=== PATIENT | female | born 1960 | race Hispanic/Latino ===

== ENCOUNTER 2022-04-04 05:25 | Emergency (ER) | payer OTHER ==
[~2022-04-04] VITALS: Ht 154.9 cm; Wt 120.2 kg
[2022-04-04] MEDS ORDERED: ONDANSETRON 4MG INJ ONE (05:35)
[2022-04-04] MEDS ORDERED: MORPHINE 4 MG SYG ONE (05:36)
[2022-04-04 05:53] LABS: BASOPHILS % (AUTO) 0.3 % (0.0-5.0); EOSINOPHILS % (AUTO) 1.8 % (0.0-8.0); HEMATOCRIT 46.5 % (36-48); LYMPHOCYTES % (AUTO) 14.7 % (21.0-51.0); MEAN CORPUSCULAR HEMOGLOBIN 30.1 pg (27.0-33.0); MEAN CORPUSCULAR VOLUME 93.9 fL (79-99); MONOCYTES % (AUTO) 8.6 % (3.0-13.0); NEUTROPHILS % (AUTO) 74.3 % (40.0-77.0); PLATELET COUNT (AUTO) 218 K/uL (130-400); RED BLOOD CELL COUNT(AUTO) 4.95 MIL/uL (4.00-5.50); WHITE BLOOD COUNT (AUTO) 12.5 K/uL (4.8-10.8)
[2022-04-04] MEDS ORDERED: 0.9% NACL 500ML IV.SOLN 500 ML IV ONE (06:00)
[2022-04-04 06:19] LABS: APPEARANCE,URINE Cloudy (CLEAR); BILIRUBIN,URINE Negative (NEGATIVE); COLOR,URINE Yellow (YELLOW); GLUCOSE, URINE (UA) >=1000 mg/dL (NEGATIVE); KETONES,URINE Negative (NEGATIVE); LEUKOCYTE ESTERASE ,URINE Negative (NEGATIVE); NITRATE,URINE Negative (NEGATIVE); OCCULT BLOOD,URINE Trace (NEGATIVE); PROTEIN,URINE Negative (NEGATIVE); UROBILINOGEN,URINE 0.2 mg/dL (0.2-1.0)
[2022-04-04 06:52] LABS: ALBUMIN 4.1 g/dL (3.5-5.0); BILIRUBIN,TOTAL 0.6 mg/dL (0.2-1.0); CREATININE 0.8 mg/dL (0.5-1.5); TOTAL PROTEIN, SERUM 8.2 g/dL (6.0-8.3)
[2022-04-04 06:54] LABS: RBC,URINE 0-1 /HPF (0-1)
[2022-04-04 06:55] LABS: BACTERIA,URINE None Seen /HPF (None Seen); SQUAMOUS EPITHELIAL CELL,UR Moderate /HPF (0-2)
[2022-04-04] MEDS ORDERED: 0.9% NACL 500ML IV.SOLN 500 ML IV SCH (07:00)
[2022-04-04 07:29] VITALS: BP 131/58
[2022-04-04] MEDS ORDERED: ONDA4TAB10 PO (07:39)
[2022-04-04] MEDS ORDERED: FAMO-136 PO (07:39)
== END 2022-04-04 08:05 | disposition home or self-care (01) ==
LOC: EDH 05:25
DX: A05.9 Bacterial foodborne intoxication, unspecified (principal); E86.0 Dehydration; R10.13 Epigastric pain; R19.7 Diarrhea, unspecified; I10 Essential (primary) hypertension; E11.9 Type 2 diabetes mellitus without complications; E78.00 Pure hypercholesterolemia, unspecified
CPT/HCPCS: 36415; 80053; 81001; 82270; 82550; 83690; 84484; 85025; 93005; 96374; 96375; 99284; J2270; J2405

== ENCOUNTER → 2023-07-06 | Outpatient (CLI) | payer OTHER ==
[~2023-07-06] MED LIST: FAMO-136 PO; ONDA4TAB10 PO
== END | disposition home or self-care (01) ==
LOC: RAH 13:56
PROVIDERS: ATTEND Orthopaedic Surgery
DX: S83.191A Other subluxation of right knee, initial encounter (principal); M17.11 Unilateral primary osteoarthritis, right knee; M77.31 Calcaneal spur, right foot; M85.88 Other specified disorders of bone density and structure, other site; X58.XXXA Exposure to other specified factors, initial encounter; Y93.89 Activity, other specified; Y92.89 Other specified places as the place of occurrence of the external cause; Y99.8 Other external cause status
CPT/HCPCS: 73700

== ENCOUNTER 2023-07-27 05:41 | Observation (INO) | payer OTHER ==
[2023-07-22 10:57] LABS: BASOPHILS # (AUTO) 0.07 K/uL (0.00-0.20); BASOPHILS % (AUTO) 0.7 % (0.0-5.0); EOSINOPHILS # (AUTO) 0.18 K/uL (0.00-0.70); EOSINOPHILS % (AUTO) 1.9 % (0.0-8.0); HEMATOCRIT 46.1 % (36-48); IMMATURE GRANULOCYTE ABSOLUTE 0.03 K/uL (0-1); LYMPHOCYTES # (AUTO) 2.9 K/uL (1.0-4.8); LYMPHOCYTES % (AUTO) 30.4 % (21.0-51.0); MEAN CORPUSCULAR HGB CONC 32.3 g/dL (32.0-36.0); MONOCYTES # (AUTO) 0.8 K/uL (0.1-1.0); MONOCYTES % (AUTO) 8.4 % (3.0-13.0); NEUTROPHILS # (AUTO) 5.6 K/uL (1.8-7.7); NEUTROPHILS % (AUTO) 58.3 % (40.0-77.0); PLATELET COUNT (AUTO) 216 K/uL (130-400); RED CELL DISTRIBUTION WIDTH 15.9 % (11.0-15.5); WHITE BLOOD COUNT (AUTO) 9.6 K/uL (4.8-10.8)
[2023-07-22 11:08] LABS: CREATININE 0.8 mg/dL (0.5-1.5); POTASSIUM 4.7 mmol/L (3.5-5.1)
[2023-07-22 11:26] LABS: INR < 0.93 (0.85-1.15); PROTHROMBIN TIME 10.4 SEC (9.6-11.6)
[2023-07-22 11:27] LABS: PARTIAL THROMBOPLASTIN TIME 27.8 SEC (26.3-35.5)
[2023-07-22 11:47] VITALS: BP 143/77; PULSE 77; RESP 20
[~2023-07-27] VITALS: Ht 162.6 cm; Wt 117.8 kg
[2023-07-27] VITALS (28 sets, daily range): BP systolic 140–158; BP diastolic 64–85; PULSE 68–87; RESP 14–20; O2SAT 93
[2023-07-27] MEDS ORDERED: CEFAZOLIN SODIUM 2 GM VIAL ONE (06:29)
[2023-07-27] MEDS ORDERED: 0.9%NACL 1000ML 1,000 ML IV ONE (06:29)
[2023-07-27] MEDS ORDERED: ATOR20TA65 PO (06:44)
[2023-07-27] MEDS ORDERED: LISI40TA9 PO (06:44)
[2023-07-27] MEDS ORDERED: CHOL500051 PO (06:44)
[2023-07-27] MEDS ORDERED: CANA300T PO (06:44)
[2023-07-27] MEDS ORDERED: METO-408 PO (06:44)
[2023-07-27] MEDS ORDERED: SUCCINYLCHOLINE 200MG/10ML SYR ONE (06:52)
[2023-07-27] MEDS ORDERED: LIDOCAINE PF 100MG/5ML (2%) SYRINGE 5ML ONE (06:52)
[2023-07-27] MEDS ORDERED: ONDANSETRON 4MG INJ ONE (06:52)
[2023-07-27] MEDS ORDERED: ROCURONIUM 10MG/1ML SYR 10 MG/ML ML ONE (06:53)
[2023-07-27] MEDS ORDERED: FENTANYL CITRATE PF 50 MCG/1 ML 2ML VIAL ONE ×2 (06:53→10:20)
[2023-07-27] MEDS ORDERED: PROPOFOL 10 MG/ML 20ML VIAL IV ONE (06:53)
[2023-07-27] MEDS ORDERED: DEXAMETHASONE SOD PHOSPHATE 10MG/ML 1ML VIAL ONE (06:53)
[2023-07-27] MEDS ORDERED: MIDAZOLAM HCL 1 MG/ML 2ML VIAL ONE (06:53)
[2023-07-27] MEDS ORDERED: ROPIVACAINE 0.5% 5MG/ML 30ML IJ ONE (07:00)
[2023-07-27] MEDS ORDERED: LIDOCAINE HCL-MPF 2% 5ML VIAL ONE (07:01)
[2023-07-27] MEDS ORDERED: TRANEXAMIC ACID 1000MG/10ML ONE (07:08)
[2023-07-27] MEDS ORDERED: CEFAZOLIN SODIUM 2 GM VIAL IVPB ONE (07:40)
[2023-07-27] MEDS ORDERED: TRANEXAMIC ACID 1000MG/10ML IV ONE (08:00)
[2023-07-27] MEDS ORDERED: SUGAMMADEX SODIUM 200 MG/2 ML VIAL IV ONE (08:52)
[2023-07-27] MEDS ORDERED: HYDROCODONE/ACETAMINOPHEN 10/325 MG TAB PO PRN (09:30)
[2023-07-27] MEDS ORDERED: POTASSIUM CHLORIDE 10% ELIXIR 20 MEQ/15 ML UDCUP PO PRN (09:30)
[2023-07-27] MEDS ORDERED: POTASSIUM CHLORIDE 20MEQ/100ML 100 ML IV PRN (09:30)
[2023-07-27] MEDS ORDERED: HYDROCODONE/ACETAMINOPHEN 5/325 MG TAB PO PRN (09:30)
[2023-07-27] MEDS ORDERED: KCL 20 MEQ ERTAB PO PRN (09:30)
[2023-07-27] MEDS ORDERED: MORPHINE 4 MG SYG IVP PRN (09:30)
[2023-07-27] MEDS ORDERED: ONDANSETRON 4MG INJ IVP PRN (09:30)
[2023-07-27] MEDS ORDERED: ACETAMINOPHEN 1,000 MG/100 ML VIAL IV ONE (09:57)
[2023-07-27] MEDS: INSULIN HUMULIN R 100 UNIT/ML 3ML SQ SCH ×3 (11:30→20:12)
[2023-07-27] MEDS: IBUPROFEN 800MG + NS 250ML IV SCH ×2 (12:06→20:20)
[2023-07-27] MEDS: 0.9%NACL 1000ML 1,000 ML IV SCH ×2 (12:06→19:30)
[2023-07-27] MEDS: TRAMADOL HCL 50 MG TABLET PO SCH ×3 (12:06→23:45)
[2023-07-27] MEDS: CEFAZOLIN SODIUM 2 GM VIAL IVPB SCH ×2 (16:37→23:40)
[2023-07-27] MEDS: ACETAMINOPHEN 1,000 MG/100 ML VIAL IV SCH ×2 (16:37→22:29)
[2023-07-27] MEDS: ASPIRIN 81 MG EC TAB PO SCH (20:20)
[2023-07-27] MEDS: FAMOTIDINE 20MG TAB PO SCH (20:20)
[2023-07-27] MEDS ORDERED: LISINOPRIL 40 MG TABLET PO SCH (21:00)
[2023-07-28] VITALS: BP 143/68; PULSE 79; RESP 18
[2023-07-28] MEDS: IBUPROFEN 800MG + NS 250ML IV SCH (03:49)
[2023-07-28] MEDS: 0.9%NACL 1000ML 1,000 ML IV SCH (03:51)
[2023-07-28 04:00] VITALS: BP 137/68; PULSE 75; RESP 18
[2023-07-28] MEDS: TRAMADOL HCL 50 MG TABLET PO SCH ×2 (05:10→12:38)
[2023-07-28 05:56] LABS: HEMATOCRIT 39.6 % (36-48); MEAN CORPUSCULAR HEMOGLOBIN 30.9 pg (27.0-33.0); MEAN CORPUSCULAR HGB CONC 32.3 g/dL (32.0-36.0); MEAN CORPUSCULAR VOLUME 95.7 fL (79-99); RED BLOOD CELL COUNT(AUTO) 4.14 MIL/uL (4.00-5.50); RED CELL DISTRIBUTION WIDTH 15.5 % (11.0-15.5); WHITE BLOOD COUNT (AUTO) 15.9 K/uL (4.8-10.8)
[2023-07-28 06:03] LABS: CREATININE 0.8 mg/dL (0.5-1.5); POTASSIUM 4.3 mmol/L (3.5-5.1)
[2023-07-28] MEDS: INSULIN HUMULIN R 100 UNIT/ML 3ML SQ SCH ×2 (06:10→11:30)
[2023-07-28 08:00] VITALS: BP 133/68; PULSE 69; RESP 16
[2023-07-28] MEDS: ASPIRIN 81 MG EC TAB PO SCH (08:26)
[2023-07-28] MEDS: FAMOTIDINE 20MG TAB PO SCH (08:26)
[2023-07-28] MEDS ORDERED: METOPROLOL SUCCINATE 25 MG TAB.SR.24H PO SCH (09:00)
[2023-07-28] MEDS ORDERED: POLYETHYLENE GLYCOL 3350 17 GM POWD.PACK PO SCH (09:00)
[2023-07-28 12:00] VITALS: BP 122/58; PULSE 74; RESP 16
[2023-07-30] MEDS ORDERED: BISACODYL 10 MG SUPP.RECT RC PRN (09:30)
== END 2023-07-28 16:00 | disposition home or self-care (01) ==
LOC: DAH 05:41 → DAHIP 05:42 → 4AH 11:00
PROVIDERS: ADMIT Orthopaedic Surgery; ATTEND Orthopaedic Surgery
DX: M17.11 Unilateral primary osteoarthritis, right knee (principal); E66.01 Morbid (severe) obesity due to excess calories; E11.9 Type 2 diabetes mellitus without complications; I10 Essential (primary) hypertension; E78.00 Pure hypercholesterolemia, unspecified; Z68.41 Body mass index [BMI] 40.0-44.9, adult; Z79.899 Other long term (current) drug therapy
CPT/HCPCS: 80048 ×2; 85025; 85610; 85730; 36415 ×2; 87641; 96376; 96365; 96366 ×2; 96375; 96367; 64447; 27447; 82948 ×7; 97161; 97039 ×2; 85027; 97116 ×2; 97530; A4605; G0378 ×28; C1776 ×3; C1713; J7030 ×2; J3010 ×2; J3490 ×3; J0330; J1100; J2001; J2250; J2704; J2405; J2270; J2795; J1741 ×3; J0690 ×4; A6223; G0168; A4649 ×2; A4930; A6212; A5120; A4215; A4223; A4222; A4221; A4663

== ENCOUNTER → 2024-01-11 | Outpatient (CLI) | payer OTHER ==
[~2024-01-11] MED LIST changes: +ATOR20TA65 PO; +CANA300T PO; +CHOL500051 PO; -FAMO-136 PO; +LISI40TA9 PO; +METO-408 PO; -ONDA4TAB10 PO
== END | disposition home or self-care (01) ==
LOC: RAH 13:18
PROVIDERS: ATTEND Orthopaedic Surgery
DX: M17.12 Unilateral primary osteoarthritis, left knee (principal)
CPT/HCPCS: 73700

== ENCOUNTER 2024-12-08 08:13 | Emergency (ER) | payer OTHER ==
[~2024-12-08] VITALS: Ht 165.1 cm; Wt 118.8 kg
[2024-12-08] MEDS: ORPHENADRINE 60MG/2ML IM ONE (08:36)
--- NOTE | 2024-12-08 09:04 | HMCIMG ---
CT ABDOMEN/PELVIS W/O CONTRAST HISTORY: Pain COMPARISON: None TECHNIQUE: Multiple sequential axial images of the abdomen and pelvis were obtained from the dome of the diaphragm through symphysis pubis. Patient was not given contrast through intravenous route. Oral contrast was not given. FINDINGS: No pleural effusion is seen bilaterally. There is no evidence of parenchymal disease or pulmonary nodule of the visualized lower lungs. Degenerative changes of the thoracolumbar spine are present. The heart is not enlarged. Liver measures 19 cm. Gallbladder is distended. There is periumbilical hernia with fat content. No bowel obstruction is seen. The liver, spleen, adrenal glands and pancreas are unremarkable. There is no evidence of hydronephrosis bilaterally. No evidence of renal stone is seen. There is minimal diverticulosis. Fecal material is seen in the colon. There are normal size retroperitoneal and mesenteric lymph nodes. No ascites is seen. No CT evidence of acute appendicitis is seen. There is mild atherosclerosis. Pelvic sidewalls are symmetric bilaterally. Bladder is poorly distended. IMPRESSION: 1. Periumbilical hernia with fat content. No ascites. CT was performed with one or more following dose reduction techniques: automated exposure control, adjustment of the mA and kv according to patient's size, or use of a iterative reconstruction technique.
[2024-12-08 09:11] LABS: BASOPHILS # (AUTO) 0.07 K/uL (0.00-0.20); BASOPHILS % (AUTO) 0.8 % (0.0-5.0); EOSINOPHILS # (AUTO) 0.12 K/uL (0.00-0.70); EOSINOPHILS % (AUTO) 1.4 % (0.0-8.0); HEMATOCRIT 45.4 % (36-48); IMMATURE GRANULOCYTE ABSOLUTE 0.02 K/uL (0-1); LYMPHOCYTES # (AUTO) 2.3 K/uL (1.0-4.8); LYMPHOCYTES % (AUTO) 25.9 % (21.0-51.0); MEAN CORPUSCULAR HEMOGLOBIN 30.4 pg (27.0-33.0); MEAN CORPUSCULAR VOLUME 92.1 fL (79-99); MONOCYTES # (AUTO) 0.6 K/uL (0.1-1.0); NEUTROPHILS # (AUTO) 5.7 K/uL (1.8-7.7); NEUTROPHILS % (AUTO) 64.7 % (40.0-77.0); PLATELET COUNT (AUTO) 217 K/uL (130-400); RED BLOOD CELL COUNT(AUTO) 4.93 MIL/uL (4.00-5.50); RED CELL DISTRIBUTION WIDTH 15.8 % (11.0-15.5); WHITE BLOOD COUNT (AUTO) 8.9 K/uL (4.8-10.8)
[2024-12-08 09:22] LABS: APPEARANCE,URINE CLEAR (CLEAR); BILIRUBIN,URINE NEGATIVE (NEGATIVE); COLOR,URINE LIGHT-YELLOW (YELLOW); GLUCOSE, URINE (UA) >=1000 mg/dL (NEGATIVE); KETONES,URINE NEGATIVE (NEGATIVE); LEUKOCYTE ESTERASE ,URINE NEGATIVE Leu/uL (NEGATIVE); NITRATE,URINE NEGATIVE (NEGATIVE); OCCULT BLOOD,URINE NEGATIVE (NEGATIVE); PH,URINE 5.5 (5.0-8.0); PROTEIN,URINE NEGATIVE (NEGATIVE); UROBILINOGEN,URINE 0.2 mg/dL (0.2-1.0)
[2024-12-08 09:44] LABS: CREATININE 0.8 mg/dL (0.5-1.0); POTASSIUM 4.6 mmol/L (3.5-5.1)
[2024-12-08] MEDS ORDERED: NAPR-1505 PO (09:45)
[2024-12-08] MEDS ORDERED: CEPH500B PO (09:45)
[2024-12-08] MEDS ORDERED: METH-662 PO (09:45)
--- NOTE | 2024-12-08 09:45 | ERN ---
General Chief Complaint: Back Pain or Injury Stated Complaint: BACK PAIN Time Seen by MD: 08:16 Source: patient, family History of Present Illness Initial Comments Patient is a 64-year-old female coming in to be evaluated for right lower back and right flank pain. She states that the pain began a couple of days ago she does not recall doing anything strain in his but states that the pain began shortly after waking up in the morning. Does not have no fever no chills. And patient states that the pain is exacerbated with movement. Allergies: Coded Allergies: No Known Drug Allergies (Unverified Allergy, Unknown, 04/04/22) Home Meds Reported Medications Canagliflozin (Invokana) 300 Mg Tablet, 300 MG PO DAILY, TAB 07/27/23 Cholecalciferol (Vitamin D3) (Vitamin D3) 125 Mcg Capsule, 125 MCG PO HS, CAP 07/27/23 Lisinopril (Lisinopril) 40 Mg Tablet, 40 MG PO HS, TAB 07/27/23 Metoprolol Succinate (Metoprolol Succinate) 25 Mg Tab.er.24h, 25 MG PO DAILY, TAB 07/27/23 Atorvastatin Calcium (Atorvastatin Calcium) 20 Mg Tablet, 20 MG PO HS, TAB 07/27/23 Past Medical History Past Medical History: Diabetes-Type II, High Cholesterol, Hypertension Past Surgical History: Other Surgical History Other: BILAT KNEE SX ROS Dictation CONSTITUTIONAL: No chills, no fever, no weakness, no diaphoresis, no malaise. HEAD/FACE: No signs of trauma. EENT: No eye pain, no blurred vision, no tearing, no double vision, no ear pain, no ear discharge, no nose pain, no nasal congestion, no throat pain, no throat swelling, no mouth pain. RESPIRATORY: No cough, no orthopnea, no SOB, no stridor, no wheezing. CARDIOVASCULAR: No chest pain, no edema, no palpitations, no syncope. GASTROINTESTINAL/ABDOMINAL: abdominal pain, no constipation, no diarrhea, no nausea, no vomiting. GENITOURINARY: No abnormal discharge, no dysuria, no frequent urination, no hematuria. No complaints of pain in the genitals. MUSCULOSKELETAL: back pain, no gout, no joint pain, no joint swelling, no muscle pain, no muscle stiffness, no neck pain. INTEGUMENTARY: No change in color, no change in hair/nails, no dryness, no lesion, no lumps, no rash. NEUROLOGICAL/PSYCH: No anxiety, not depressed, no emotional problem, no headache, no numbness, no pre-existing deficit, no history of seizures, no tremors, no weakness. HEMATOLOGIC/LYMPHATIC: Not anemic, no history of blood clots, no apparent bleeding, no bruising, glands not swollen. All Systems Negative, Except as Noted. Physical Exam Physical Exam Dictation VITAL SIGNS: Reviewed. GENERAL APPEARANCE: Alert, oriented x3, no acute distress, obese. HEAD AND FACE: Non-traumatic. EYES: PERRL, pink conjunctivas, eyelid no trauma, anterior chamber clear. EARS: Pinnas intact and no signs of trauma or erythema. Ear canals clear and no discharge. TMs no erythema. NOSE: No discharge, no bleeding. OROPHARYNX: Mouth normal, teeth no caries, tongue pink. Pharynx clear, no erythema. Tonsils no exudates, no abscesses noted. Mucous membrane moist. NECK: Supple, non-tender, no thyromegaly, no masses, no JVD, no bruits. BREAST: Deferred. CHEST: No tenderness, no crepitus, no paradoxical movement, no retractions. LUNGS: Clear, well-ventilated, symmetric, no rales, no wheezing, no rhonchi, no stridor, good breath sounds bilaterally. HEART: Regular rate, regular rhythm, no murmur, no gallops. VASCULAR: No peripheral edema. ABDOMEN: Soft, positive bowel sounds, nondistended, no guarding, right lower quadrant tenderness on palpation, no rebound, no masses no hepatomegaly, no splenomegaly, no Roque's sign, no hernias. RECTAL: Deferred. GENITAL: Deferred. NEUROLOGICAL: Normal speech, gross motor function intact, gross sensory functi on intact. MUSCULOSKELETAL: Neck nontender, full range of motion, right lower back grinder, full range of motion. EXTREMITIES: Nontender, full range of motion. SKIN: Color pink, dry, no turgor, no rash, no lacerations, no abrasions, no contusions. LYMPHATICS: Deferred. Results Laboratory and Microbiology Lab and Micro Result Laboratory Tests Test 12/08/24 08:36 12/08/24 09:04 Urine Color LIGHT-YELLOW (YELLOW) Urine Appearance CLEAR (CLEAR) Urine pH 5.5 (5.0-8.0) Urine Specific [place] 1.020 (1.001-1.031) Urine Protein NEGATIVE mg/dL (NEGATIVE) Urine Glucose (UA) >=1000 mg/dL (NEGATIVE) H Urine Ketones NEGATIVE mg/dL (NEGATIVE) Urine Occult Blood NEGATIVE (NEGATIVE) Urine Nitrate NEGATIVE (NEGATIVE) Urine Bilirubin NEGATIVE mg/dL (NEGATIVE) Urine Urobilinogen 0.2 mg/dL (0.2-1.0) Urine Leukocyte Esterase NEGATIVE Mason/uL White Blood Count 8.9 K/uL (4.8-10.8) Red Blood Count 4.93 MIL/uL (4.00-5.50) Hemoglobin 15.0 g/dL (12.0-16.0) Hematocrit 45.4 % (36-48) Mean Corpuscular Volume 92.1 fL (79-99) Mean Corpuscular Hemoglobin 30.4 pg (27.0-33.0) Mean Corpuscular Hemoglobin Concent 33.0 g/dL (32.0-36.0) Red Cell Distribution Width 15.8 % (11.0-15.5) H Platelet Count 217 K/uL (130-400) Mean Platelet Volume 9.7 fL (7.5-10.5) Immature Granulocyte % (Auto) 0.2 % (0-1) Neutrophils (%) (Auto) 64.7 % (40.0-77.0) Lymphocytes (%) (Auto) 25.9 % (21.0-51.0) Monocytes (%) (Auto) 7.0 % (3.0-13.0) Eosinophils (%) (Auto) 1.4 % (0.0-8.0) Basophils (%) (Auto) 0.8 % (0.0-5.0) Neutrophils # (Auto) 5.7 K/uL (1.8-7.7) Lymphocytes # (Auto) 2.3 K/uL (1.0-4.8) Monocytes # (Auto) 0.6 K/uL (0.1-1.0) Eosinophils # (Auto) 0.12 K/uL (0.00-0.70) Basophils # (Auto) 0.07 K/uL (0.00-0.20) Absolute Immature Granulocyte (auto 0.02 K/uL (0-1) Nucleated Red Blood Cells 0.0 % (0.0-0.19) Labs Reviewed?: Yes EKG/XRAY/US/CT/MRI CT Scan Comment [address] [place] [address] IMAGING REPORT Signed PATIENT: PAUL TUCKER MR#: [id number] : 1960 SEX: F AGE: 64 LOCATION: [facility] ORDER 4 STATUS: [facility] REPORT#: [id number] SERVICE 3 REASON: right lower back and lower abd pain ORDERING PHYSICIAN: BARBARA PERDOMO MD PROCEDURE: ABD PEL WO - CT ABDOMEN/PELVIS W/O CONTRAST CT ABDOMEN/PELVIS W/O CONTRAST HISTORY: Pain COMPARISON: None TECHNIQUE: Multiple sequential axial images of the abdomen and pelvis were obtained from the dome of the diaphragm through symphysis pubis. Patient was not given contrast through intravenous route. Oral contrast was not given. FINDINGS: No pleural effusion is seen bilaterally. There is no evidence of parenchymal disease or pulmonary nodule of the visualized lower lungs. Degenerative changes of the thoracolumbar spine are present. The heart is not enlarged. Liver measures 19 cm. Gallbladder is distended. There is periumbilical hernia with fat content. No bowel obstruction is seen. The liver, spleen, adrenal glands and pancreas are unremarkable. There is no evidence of hydronephrosis bilaterally. No evidence of renal stone is seen. There is minimal diverticulosis. Fecal material is seen in the colon. There are normal size retroperitoneal and mesenteric lymph nodes. No ascites is seen. No CT evidence of acute appendicitis is seen. There is mild atherosclerosis. Pelvic sidewalls are symmetric bilaterally. Bladder is poorly distended. IMPRESSION: 1. Periumbilical hernia with fat content. No ascites. CT was performed with one or more following dose reduction techniques: automated exposure control, adjustment of the mA and kv according to patient's size, or use of a iterative reconstruction technique. DICTATED BY: SLAVA AMADOR MD DATE: 12/08/2457 ELECTRONICALLY SIGNED BY: SLAVA AMADOR MD DATE: 12/08/24903 [facility] MDM: Differential diagnosis: Back strain, cystitis, UTI, nephrolithiasis, Patient is a 64-year-old female coming in to be evaluated for right lower back pain. Concerning part was at the pain radiated to the right lower quadrant area. CT disclose the periumbilical hernia otherwise no other acute finding. Patient will be discharged with a diagnosis of lumbar strain with urinary tract infection. ED Course Orders Procedure Category Date Status Time Cbc With Differential LAB 12/08/24 Complete 08:24 Basic Metabolic Panel LAB 12/08/24 In Process 08:24 Urinalysis LAB 12/08/24 In Process W/Microscopic 08:24 Ct Abdomen/Pelvis W/O CT 12/08/24 Resulted Contrast 08:24 Orphenadrine Citrate PHA 12/08/24 Complete (Norflex) 08:30 Current Medications Medications (Trade) Dose Ordered Sig/Malina Route PRN Reason Start Time Stop Time Status Last Admin Dose Admin Orphenadrine Citrate (Norflex) 60 mg ONCE ONCE IM 12/08/24 08:30 12/08/24 08:31 DC 12/08/24 08:36 Vital Signs Date Time Temp Pulse Resp B/P (MAP) Pulse Ox O2 Delivery O2 Flow Rate FiO2 12/08/24 08:37 79 12 164/86 96 Room Air* 0 21 12/08/24 08:16 98.1 82 15 153/75 97 Room Air 0 DX & DISP Disposition: Discharge Departure Impression: Primary Impression: Lumbar strain Additional Impression: Cystitis Condition: Stable Scripts Cephalexin Monohydrate (Keflex) 500 Mg Cap 1 CAP PO BID for 10 Days, #20 CAP 0 Refills Prov: BARBARA PERDOMO MD 12/08/24 Naproxen (Naproxen) 375 Mg Tablet.dr 375 MG PO BID for 7 Days, #14 TAB Prov: BARBARA PERDOMO MD 12/08/24 Methocarbamol (Robaxin) 750 Mg Tab 1 TAB PO BID PRN for spasm for 14 Days, #60 TAB 0 Refills Prov: BARBARA PERDOMO MD 12/08/24 Additional Instructions: FOLLOW-UP WITH PRIMARY CARE PROVIDER IN 1 TO 2 DAYS. TAKE MEDICATIONS DIRECTED HERE IN THE EMERGENCY ROOM. OKAY TO CONTINUE HOME MEDICATIONS UNLESS OTHERWISE DISCUSSED DURING YOUR VISIT IN THE EMERGENCY ROOM TODAY. RETURN TO YOUR NEAREST EMERGENCY ROOM IF SYMPTOMS WORSEN OR IF THERE IS NO IMPROVEMENT. CALL 911 IF YOU NEED IMMEDIATE ASSISTANCE. TAKE TYLENOL [id number] NEEDED AND IF NO CONTRAINDICATIONS ARE PRESENT. INCREASE ORAL HYDRATION. A WOUND CULTURE OR URINE CULTURE WAS ORDERED HERE IN THE EMERGENCY ROOM DEPARTMENT PLEASE FOLLOW-UP WITH PRIMARY CARE PROVIDER AND ADVISE THEM TO GET REPEAT PORTS FROM OUR FACILITY. IF YOU HAD ANY FIOR WRAP/SPLINTS THAT WERE APPLIED HERE, PLEASE DO NOT REMOVE THEM UNTIL YOU SEE YOUR PRIMARY CARE OR SPECIALTY. Referrals: Referrals: OLAF SCHMID PA-C (PCP) Time of Disposition: 09:44 BARBARA PERDOMO MD Dec 08, 2024 09:45
[2024-12-08 09:47] VITALS: BP 151/88; PULSE 69; RESP 14; TEMP 97.5; O2SAT 97
[2024-12-08 09:56] LABS: MUCUS,URINE RARE LPF (None Seen); SQUAMOUS EPITHELIAL CELL,UR FEW /HPF (0-2); WBC,URINE 0-1 /HPF (0-1)
--- NOTE | 2024-12-08 10:01 | NUR ---
PT AAOX4, PT STABLE, NO DISTRESS VITALS WNL NO C/O PAIN NOW, NO IV ON THIS VIST, PT AND DAUGHTER GIVEN DISCHARGE INSTRUCTIONS, BOTH VERBALIZED UNDERSTANDING. PT GIVEN 3 PRESCRIPTIONS IN HAND TO TAKE TO PHARMACY WILL START DOSES TODAY. PT OFFERED WHEEL CHAIR,REFUSED STATED SHE CAN WALK TO ED LOBBY, PT DRIVEN HOME BY DAUGTER.
== END 2024-12-08 10:03 | disposition home or self-care (01) ==
LOC: EDH 08:13
DX: S39.012A Strain of muscle, fascia and tendon of lower back, initial encounter (principal); N30.90 Cystitis, unspecified without hematuria; E11.9 Type 2 diabetes mellitus without complications; E78.00 Pure hypercholesterolemia, unspecified; I10 Essential (primary) hypertension; Z79.84 Long term (current) use of oral hypoglycemic drugs; Z79.899 Other long term (current) drug therapy; X58.XXXA Exposure to other specified factors, initial encounter; Y93.89 Activity, other specified; Y92.89 Other specified places as the place of occurrence of the external cause; Y99.8 Other external cause status
CPT/HCPCS: 36415; 74176; 80048; 81001; 85025; 96372; 99285; J2360

== ENCOUNTER → 2025-05-14 | Outpatient (CLI) | payer OTHER ==
[~2025-05-14] MED LIST changes: +CEPH500B PO; +LISI40TA15 PO; -LISI40TA9 PO; +METH-662 PO; +NAPR-1505 PO
== END | disposition home or self-care (01) ==
LOC: RAH 13:27
PROVIDERS: ATTEND Family Medicine
DX: Z12.31 Encounter for screening mammogram for malignant neoplasm of breast (principal)
CPT/HCPCS: 77067